=== PATIENT | male | born 1945 | race Two or more races ===

== ENCOUNTER → 2024-12-16 | Emergency (ER) | payer OTHER ==
[~2024-12-16] VITALS: Ht 177.8 cm; Wt 79.4 kg
[~2024-12-16] MED LIST: 0.9 % SODIUM CHLORIDE 1,000 ML IV SCH; 0.9 % SODIUM CHLORIDE 1,000 ML IV STA; ACID CONTROLLER20 MG PO; CEFTRIAXONE SODIUM 2,000 MG VIAL ONE; CEFTRIAXONE SODIUM 2,000 MG in 0.9 % SODIUM CHLORIDE 100 ML IV ONE; COZAAR25 MG PO; DEXAMETHASONE 4 MG TABLET PO STA; DEXAMETHASONE SODIUM PHOSPHATE 4 MG/ML VIAL IV SCH; DEXAMETHASONE SODIUM PHOSPHATE 4 MG/ML VIAL ONE; ENALAPRILAT DIHYDRATE 1.25 MG/ML VIAL IV ONE; ENALAPRILAT DIHYDRATE 1.25 MG/ML VIAL IV PRN; FAMOTIDINE/PF 20 MG in 0.9 % SODIUM CHLORIDE 8 ML IV PUSH SCH; FAMOTIDINE/PF 20 MG/2 ML VIAL ONE; HYDROCHLOROTH12.5 M2 PO; KETOROLAC TROMETHAMINE 30 MG VIAL IV ONE; KETOROLAC TROMETHAMINE 30 MG VIAL ONE; KETOROLAC TROMETHAMINE 60 MG VIAL IM ONE; KETOROLAC TROMETHAMINE 60 MG VIAL IM STA; LABETALOL HCL 100 MG/20 ML ML IV ONE; LABETALOL HCL 100 MG/20 ML ML ONE; LEVOTHYROXINE SODIUM 50 MCG TABLET PO SCH; LIPITOR40 M1 PO; LOSARTAN/HYDROCHLOROTHIAZIDE 1 TAB TABLET PO SCH; ORPHENADRINE CITRATE 30 MG/ML AMPUL IM ONE; ORPHENADRINE CITRATE 30 MG/ML AMPUL IM STA; ORPHENADRINE CITRATE 30 MG/ML AMPUL ONE; POLYETHYLENE GLYCOL 3350 17 GM BLIST.PACK PO STA; SYNTHROID75 MCG PO; TRAMADOL HCL 50 MG TABLET PO STA
[2024-12-16 03:05] LABS: BASO % 0.3 % (0.1-1.2); EOS # 0.01 (0.04-0.54); EOS % 0.1 % (0.7-7.0); LYMPH # 1.26 (1.18-3.74); LYMPH % 8.0 % (19.3-53.1); MEAN PLATELET VOLUME 10.50 fl (9.4-12.4); MONO # 0.69 (0.24-0.82); MONO % 4.4 % (4.7-12.5); NEUT # 13.64 (1.56-6.13); NEUT % 86.8 % (34.0-71.1); RED CELL DISTRIBUTION WIDTH 12.2 % (11.6-14.4)
[2024-12-16 03:20] LABS: ALT/SGPT 38.0 U/L (12-78); AST/SGOT 26.0 U/L (15-37); BILIRUBIN TOTAL 0.99 mg/dL (0.3-1.2); BUN CREA RATIO 20.0 (7.0-25.0); CREATININE SERUM 0.89 mg/dL (0.70-1.30); GFR 82.24; GLOBULINA 3.5 G/DL (2.4-3.5); GLUCOSE FASTING 160.0 mg/dL (65-100); OSMOLALITY SERUM 281.0 MOSM/KG (275-295)
[2024-12-16 06:26] LABS: URINE APPEARANCE Clear; URINE BILIRRUBIN Negative (NEGATIVE); URINE BLOOD Moderate; URINE COLOR Yellow; URINE GLUCOSE Negative (NEGATIVE); URINE LEUKOCYTE Negative; URINE NITRATE Negative; URINE UROBILINOGEN 0.2 E.U./dl
[2024-12-16 06:29] LABS: URINE BACTERIA 31.1 uL (0.0-1933); URINE EPITHELIAL CELLS 20.5 uL (0.0-38.8); URINE RBC 25.9 uL (0.0-20.8); URINE WBC 20.7 uL (0.0-23.2)
[2024-12-16 06:48] LABS: URINE CAST 1.17 uL (0.0-1.40); URINE KETONE 40 (NEGATIVE); URINE PROTEIN 300 (NEGATIVE)
[2024-12-17 17:01] VITALS: BP 180/90; O2SAT 98
== END | disposition designated cancer center or children's hospital (05) ==
LOC: ER 00:51
PROVIDERS: Preventive Medicine Public Health & General Preventive Medicine
DX: Q06.8 Other specified congenital malformations of spinal cord (principal); M54.50 Low back pain, unspecified; E03.8 Other specified hypothyroidism; I10 Essential (primary) hypertension
CPT/HCPCS: 36415; 51702; 70450; 71046; 72040; 72131; 72149; 74176; 96365; 96366; 99285; J3490 ×2; J7030; Q9965; 72158